=== PATIENT | female | born 1955 | race African-American/Black ===

== ENCOUNTER 2017-03-27 06:33 | Emergency (ER) | payer OTHER ==
[~2017-03-27] VITALS: Ht 160 cm; Wt 117.9 kg
[~2017-03-27 06:33] MED LIST: ALLO100T PO; ATEN100T PO; COLC0.6T2 PO; FLUT12AE7 HHN; LORA1TAB82 PO; MONT10TA22 PO; TRAM50TA2 PO; TRAZ150T75 PO; VENL150C2 PO
--- NOTE | 2017-03-27 06:49 | NUR ---
PT BIB FAMILY, PT RIGHT FLANK PAIN X 1 DAY. PT AOX3 RR EVEN AND UNLABORED. NO SOB NOTED. NAD NOTED. NO NVD AT THIS TIME. PT GOWNED AND PLACED ON MONITOR WAITING FOR MD HEATH.
--- NOTE | 2017-03-27 06:51 | NUR ---
DR. ARCHULETA AT BEDSIDE FOR EVAL.
--- NOTE | 2017-03-27 07:10 | NUR ---
REPORT GIVEN TO CHARLOTTE FAROOQ FOR ARCELIA.
[2017-03-27 07:30] LABS: BASOPHILS % (AUTO) 0.1 % (0.0-2.0); EOSINOPHILS % (AUTO) 0.1 % (0.0-6.0); HEMATOCRIT 40 % (33-45); HEMOGLOBIN 13.1 g/dL (11.5-14.8); LYMPHOCYTES # (AUTO) 1.4 /CMM (0.8-4.8); LYMPHOCYTES % (AUTO) 10.1 % (20.0-44.0); MEAN CORPUSCULAR HEMOGLOBIN 29 PG (26.0-33.0); MEAN CORPUSCULAR HGB CONC 33 g/dl (31.0-36.0); MEAN CORPUSCULAR VOLUME 90 fL (82-100); MONOCYTES # (AUTO) 0.5 /CMM (0.1-1.30); MONOCYTES % (AUTO) 3.8 % (2.0-12.0); NEUTROPHILS # (AUTO) 11.7 /CMM (1.8-8.9); NEUTROPHILS % (AUTO) 85.9 % (43.0-81.0); PLATELET COUNT (AUTO) 276 /CMM (150-450); RDW COEFFICIENT OF VARIATION 14.2 (11.5-15.0); RED BLOOD CELL COUNT(AUTO) 4.48 MIL/uL (4.0-5.2); WHITE BLOOD COUNT (AUTO) 13.7 K/uL (4.3-11.0)
--- NOTE | 2017-03-27 07:43 | NUR ---
URINE SAMPLE COLLECTED SENT TO LAB
[2017-03-27 07:46] LABS: BILIRUBIN,DIRECT 0.1 mg/dL (0.0-0.2); BILIRUBIN,TOTAL 0.4 mg/dL (0.2-1.0); CALCIUM, SERUM 9.1 mg/dL (8.5-10.1); POTASSIUM 3.6 mmol/L (3.5-5.1); TOTAL PROTEIN, SERUM 8.6 g/dL (6.4-8.2)
[2017-03-27 07:53] LABS: APPEARANCE,URINE SL CLOUDY (CLEAR); BILIRUBIN,URINE NEGATIVE (NEGATIVE); BLOOD, URINE 3+ Ery/uL (NEGATIVE); COLOR,URINE YELLOW (YELLOW); KETONES,URINE NEGATIVE (NEGATIVE); LEUKOCYTE ESTERASE ,URINE NEGATIVE (NEGATIVE); NITRITE, URINE NEGATIVE (NEGATIVE); PH,URINE 7.5 (5.0-8.0); PROTEIN,URINE TRACE mg/dl (NEGATIVE); UGLUCOSE NEGATIVE (NEGATIVE); UROBILINOGEN,URINE 0.2 EU/dL (0.2)
[2017-03-27 08:00] LABS: BACTERIA,URINE Rare /HPF (None Seen); RBC,URINE 81-100 /HPF (0-2); WBC,URINE 0-2 /HPF (0-3)
[2017-03-27 08:01] LABS: SQUAMOUS EPITHELIAL CELL,UR 0-2 /HPF (None Seen)
--- NOTE | 2017-03-27 09:10 | NUR ---
IV removed. Catheter intact and site benign. Pressure and 4x4 applied to site. No bleeding noted.
--- NOTE | 2017-03-27 09:10 | NUR ---
Patient discharged to home in stable condition. Written and verbal after care instructions given. Patient verbalizes understanding of instruction.
[2017-03-27 09:11] VITALS: BP 140/85
== END 2017-03-27 09:30 | disposition home or self-care (01) ==
LOC: ER 06:37
DX: N13.2 Hydronephrosis with renal and ureteral calculous obstruction (principal); D25.9 Leiomyoma of uterus, unspecified; D72.829 Elevated white blood cell count, unspecified; I10 Essential (primary) hypertension; J45.909 Unspecified asthma, uncomplicated; K57.30 Diverticulosis of large intestine without perforation or abscess without bleeding; Z86.718 Personal history of other venous thrombosis and embolism
CPT/HCPCS: 36415; 80048-TC; 80076-TC; 81000-TC; 83690-TC; 85025-TC; 87086-TC; A4606; J1170; J1885; J2270; J2405; J7040; Z7610

== ENCOUNTER 2017-04-23 20:29 | Inpatient (IN) | payer OTHER ==
[~2017-04-23] VITALS: Ht 160 cm; Wt 112.3 kg
[~2017-04-23 20:29] MED LIST changes: -FLUT12AE7 HHN; +FLUT12AE7 IH
--- NOTE | 2017-04-23 20:43 | NUR ---
PT A/OX4 BREATHING EFFORTLESSLY ON ROOM AIR, PT STATES SHE HAD 2 GLF'S LAST NIGHT AND DENIES KO ON EITHER ONE, PT C/O HEAD RIGHT SIDE FO FACE AND RIGHT ARM PAIN, PT IN GOWN, ON MONITOR, NAD NOTED, PT FRIEND AT BEDSIDE, MADE AWARE WILL CONTINUE TO MONITOR.
--- NOTE | 2017-04-23 21:14 | NUR ---
PT TO CT
[2017-04-23 21:39] LABS: BASOPHILS % (AUTO) 0.4 % (0.0-2.0); EOSINOPHILS # (AUTO) 0.3 /CMM (0.0-0.7); EOSINOPHILS % (AUTO) 4.1 % (0.0-6.0); HEMATOCRIT 39 % (33-45); HEMOGLOBIN 12.5 g/dL (11.5-14.8); LYMPHOCYTES # (AUTO) 3.1 /CMM (0.8-4.8); LYMPHOCYTES % (AUTO) 39.1 % (20.0-44.0); MEAN CORPUSCULAR HEMOGLOBIN 29 PG (26.0-33.0); MEAN CORPUSCULAR HGB CONC 32 g/dl (31.0-36.0); MEAN CORPUSCULAR VOLUME 89 fL (82-100); MONOCYTES # (AUTO) 0.7 /CMM (0.1-1.30); MONOCYTES % (AUTO) 8.7 % (2.0-12.0); NEUTROPHILS # (AUTO) 3.8 /CMM (1.8-8.9); NEUTROPHILS % (AUTO) 47.7 % (43.0-81.0); PLATELET COUNT (AUTO) 285 /CMM (150-450); RDW COEFFICIENT OF VARIATION 13.2 (11.5-15.0); RED BLOOD CELL COUNT(AUTO) 4.37 MIL/uL (4.0-5.2); WHITE BLOOD COUNT (AUTO) 7.9 K/uL (4.3-11.0)
[2017-04-23] MEDS ORDERED: METOCLOPRAMIDE HCL 10 MG/2 ML VIAL ONE (21:42)
[2017-04-23] MEDS ORDERED: diphenhydrAMINE HCL 50 MG/ML VIAL ONE (21:42)
--- NOTE | 2017-04-23 21:47 | NUR ---
PT HAD 1 BOUT OF VOMITING AND PT STATES SHE IS FEELING BETTER AFTER VOMITING, MD MADE AWARE WILL CONTINUE TO MONITOR.
[2017-04-23 21:49] LABS: CALCIUM, SERUM 9.2 mg/dL (8.5-10.1); CARBON DIOXIDE 29 mmol/L (21-32); CHLORIDE 106 mmol/L (98-107); CREATININE 1.6 mg/dL (0.6-1.3); GLUCOSE 93 mg/dL (74-106); SODIUM SERUM 139 mmol/L (136-145); UREA NITROGEN, BLOOD 26 mg/dL (7-18)
[2017-04-23 21:58] LABS: TROPONIN I < 0.017 ng/mL (0.00-0.056)
[2017-04-23] MEDS ORDERED: diphenhydrAMINE HCL 50 MG/ML VIAL IV ONE (22:00)
[2017-04-23] MEDS ORDERED: IV NS 0.9% 500 ML BAG IV ONE (22:00)
[2017-04-23] MEDS ORDERED: METOCLOPRAMIDE HCL 10 MG/2 ML VIAL IV ONE (22:00)
--- NOTE | 2017-04-23 23:10 | NUR ---
RN NOTES PATIENT ADMITTED FROM ER. GOT REPORT FROM CHARLOTTE YANG. PATIENT ALERT AND ORIENTED X4. ON RA, RESPIRATIONS EVEN AND UNLABORED. NO RESPIRATORY DISTRESS NOTED. NO SOB. PATIENT COMPLAINS PAIN 5/10 HEAD RIGHT SIDE TO FACE AND RIGHT ARM PAIN. MD AWARE. PATIENT'S FRIEND AT BEDSIDE. IV ACCESS ON RIGHT AC PATENT AND INTACT. NO REDNESS OR INFILTRATION NOTED. BSX4. WILL WAIT FOR MD ORDER. BED IN LOW POSITION. SIDE RAILSX2. CALL LIGHT WITHIN EASY REACH. CONTINUE TO MONITOR.
[2017-04-23 23:30] VITALS: BP 140/76
[2017-04-24] MEDS ORDERED: IV NS 0.9% 1,000 ML BAG IV ONE
[2017-04-24] MEDS ORDERED: MAGNESIUM HYDROXIDE 30 ML UDC PO PRN
[2017-04-24] MEDS ORDERED: ONDANSETRON HCL/PF 4 MG/2 ML VIAL IVP PRN
[2017-04-24] MEDS ORDERED: MAG HYDROX/AL HYDROX/SIMETH 30 ML UDC PO PRN
[2017-04-24] MEDS ORDERED: Z GUARD REMEDY 2 OZ OINT TP PRN
[2017-04-24] MEDS ORDERED: ZOLPIDEM TARTRATE 5 MG TABLET PO PRN
[2017-04-24] MEDS ORDERED: VENLAFAXINE XR 150 MG CAP.SR.24H PO SCH (00:30)
[2017-04-24 00:32] VITALS: BP 140/76
[2017-04-24] MEDS ORDERED: ACETAMINOPHEN 325 MG TABLET ONE (00:41)
[2017-04-24] MEDS ORDERED: VENLAFAXINE XR 150 MG CAP.SR.24H ONE (00:43)
[2017-04-24] MEDS: ACETAMINOPHEN 325 MG TABLET PO PRN (00:50)
--- NOTE | 2017-04-24 00:50 | NUR ---
RN NOTES TYLENOL GIVEN 650 MG PER MD ORDER FOR PAIN RIGHT ARM AND FACE. PER DR BLAIR NO NARCOTICS, NO BENZODIAZIPINES . PATIENT ON FREQUENT NEURO CHECK. CONTINUE TO MONITOR.
[2017-04-24] MEDS ORDERED: ONDANSETRON HCL/PF 4 MG/2 ML VIAL ONE (02:01)
--- NOTE | 2017-04-24 02:09 | NUR ---
RN NOTES ZOFRAN 4MG/2 ML GIVEN TO THE PATIENT TO CONTROL NAUSEA AND VOMITING. CONTINUE TO MONITOR.
--- NOTE | 2017-04-24 06:50 | NUR ---
RN CLOSING NOTES PATIENT IS IN BED ALERT AND ORIENTED X4. ON RA, RESPIRATIONS EVEN AND UNLABORED. NO RESPIRATORY DISTRESS NOTED. NO SOB. VS S TABLE. PATIENT'S FRIEND AT BEDSIDE. IV ACCESS ON RIGHT AC PATENT AND INTACT. NO REDNESS OR INFILTRATION NOTED. INFUSING NS AT 100 ML/HR. PATIENT NPO EXCEPT MEDICATIONS DUE TO POSSIBLE PROCEDURE. BED IN LOW POSITION. SIDE RAILSX2. CALL LIGHT WITHIN EASY REACH. WILL ENDORSE TO RN DAY SHIFT FOR CONTINUITY OF CARE.
--- NOTE | 2017-04-24 07:18 | NUR ---
TAX REVENUE OFFICER OPENING NOTE RECEIVED SBAR REPORT AT THE BEDSIDE. PATIENT IS IN BED A/O X3, ANXIOUS, FORGETFUL OF SPECIFIC DATES. PATIENT IS AWAKE IN BED, FRIEND AT THE BEDSIDE. BED IS LOCKED AT THE LOWEST POSITION, SIDE RAILS UP X2, BED ALARM ON. PATIENT IS EDUCATED TO USE THE CALL LIGHT TO CALL FOR ASSISTANCE. PATIENT VERBALIZED UNDERSTANDING OF THE TEACHINGS. ALL NEEDS ARE ATTENDED TO. WILL CONTINUE TO ASSESS/MONITOR THROUGHOUT THE SHIFT.
[2017-04-24 07:48] LABS: BASOPHILS % (AUTO) 0.1 % (0.0-2.0); EOSINOPHILS # (AUTO) 0.4 /CMM (0.0-0.7); EOSINOPHILS % (AUTO) 5.9 % (0.0-6.0); HEMATOCRIT 33 % (33-45); HEMOGLOBIN 10.8 g/dL (11.5-14.8); LYMPHOCYTES # (AUTO) 3.3 /CMM (0.8-4.8); MEAN CORPUSCULAR HEMOGLOBIN 30 PG (26.0-33.0); MEAN CORPUSCULAR HGB CONC 33 g/dl (31.0-36.0); MEAN CORPUSCULAR VOLUME 90 fL (82-100); MONOCYTES # (AUTO) 0.9 /CMM (0.1-1.30); MONOCYTES % (AUTO) 12.3 % (2.0-12.0); NEUTROPHILS # (AUTO) 2.4 /CMM (1.8-8.9); NEUTROPHILS % (AUTO) 34.7 % (43.0-81.0); PLATELET COUNT (AUTO) 223 /CMM (150-450); RDW COEFFICIENT OF VARIATION 14.4 (11.5-15.0); RED BLOOD CELL COUNT(AUTO) 3.67 MIL/uL (4.0-5.2); WHITE BLOOD COUNT (AUTO) 7.1 K/uL (4.3-11.0)
[2017-04-24 08:00] VITALS: BP 123/70
[2017-04-24 08:12] LABS: CALCIUM, SERUM 8.4 mg/dL (8.5-10.1); CREATININE 1.1 mg/dL (0.6-1.3); PHOSPHORUS 5.4 mg/dL (2.5-4.9); POTASSIUM 4.2 mmol/L (3.5-5.1)
--- NOTE | 2017-04-24 09:18 | NUR ---
CREDIT CLERK NOTE DR SHEPARD AT THE BEDSIDE.
[2017-04-24] MEDS: MONTELUKAST SODIUM (10MG) 10 MG TABLET PO SCH (09:54)
[2017-04-24] MEDS: VENLAFAXINE XR 150 MG CAP.SR.24H PO SCH (09:54)
[2017-04-24] MEDS: TRAMADOL HCL 50 MG TABLET PO SCH (09:55)
[2017-04-24] MEDS: IV NS 0.9% 1,000 ML IV PRN (09:56)
[2017-04-24] MEDS: FLUTICASONE 220MCG 1 INHALER IH SCH ×2 (09:56→21:06)
[2017-04-24 10:04] LABS: THYROID STIMULATING HORMONE 0.916 uIU/mL (0.358-3.74)
[2017-04-24] MEDS ORDERED: HYDR-3026 PO (12:08)
[2017-04-24] MEDS ORDERED: GABA-534 PO (12:08)
[2017-04-24] MEDS ORDERED: ATOR10TA PO (12:08)
[2017-04-24] MEDS ORDERED: SALM50DI IH (12:08)
[2017-04-24] MEDS ORDERED: OMEP20CA10 PO (12:08)
[2017-04-24] MEDS ORDERED: TIOT18CA3 IH (12:08)
[2017-04-24] MEDS ORDERED: NAPR500T3 PO (12:08)
[2017-04-24] MEDS ORDERED: LORA10TA7 PO (12:08)
[2017-04-24] MEDS ORDERED: FLUT200B IH (12:08)
[2017-04-24] MEDS ORDERED: [UNRECOGNIZED DRUG - CODE] BC (12:08)
[2017-04-24] MEDS ORDERED: POLY15DR40 EACHEYE (12:08)
[2017-04-24] MEDS ORDERED: HYDR59LO5 TP (12:08)
[2017-04-24] MEDS ORDERED: FLUT16SP16 NS (12:08)
[2017-04-24] MEDS ORDERED: ALBU2.5V13 IH (12:08)
[2017-04-24] MEDS ORDERED: HYDR28.32 TP (12:08)
[2017-04-24] MEDS ORDERED: APIX5TAB PO (12:08)
[2017-04-24] MEDS ORDERED: DIPH25CA6 PO (12:08)
[2017-04-24] MEDS: APIXABAN 5 MG TABLET PO SCH ×2 (13:50→17:11)
[2017-04-24 16:00] VITALS: BP 101/57
--- NOTE | 2017-04-24 19:37 | NUR ---
MS RN CLOSING NOTE GAVE SBAR REPORT AT THE BEDSIDE. PATIENT IS IN BED A/O X3, ANXIOUS, FORGETFUL OF SPECIFIC DATES. PATIENT IS AWAKE IN BED, FRIEND AT THE BEDSIDE. BED IS LOCKED AT THE LOWEST POSITION, SIDE RAILS UP X2, BED ALARM ON. PATIENT IS EDUCATED TO USE THE CALL LIGHT TO CALL FOR ASSISTANCE. PATIENT VERBALIZED UNDERSTANDING OF THE TEACHINGS. ALL NEEDS ARE ATTENDED TO. WENDORSED TO DIVISION CHAIR FOR ARCELIA.
--- NOTE | 2017-04-24 19:52 | NUR ---
MS/RN RECEIVE PATIENT AWAKE, ALERT, ORIENTED, COMFORTABLE, NO C/O PAIN, NO DISTRESS NOTED, ASSISTED TO THE TOILET AND BACK TO BED, TOLERATED WELL. PLACED CALL LIGHT WITHIN IN REACH. FALL PRECAUTION PER PROTOCOL IN PLACE. WILL MONITOR.
[2017-04-24 20:00] VITALS: BP_SYST 115; BP_SYST 117; BP_SYST 120; BP_DIAS 69; BP_DIAS 70; BP_DIAS 74
[2017-04-24 20:58] VITALS: BP 115/69
--- NOTE | 2017-04-25 01:28 | NUR ---
MS/RN PATIENT IS SLEEPING AT THIS TIME, AROUSABLE APPEAR COMFORTABLE, NO SIGNS OF DISTRESS NOTED, CALL LIGHT IN REACH. WILL CONTINUE TO MONITOR.
[2017-04-25] MEDS: IV NS 0.9% 1,000 ML IV PRN ×3 (03:32→22:54)
--- NOTE | 2017-04-25 06:22 | NUR ---
MS/RN PATIENT IS AWAKE AT THIS TIME, COMFORTABLE, NO CHANGE IN CONDITION. ALL NEEDS ATTENDED AT THIS TIME, WILL CONTINUE TO MONITOR.
[2017-04-25 06:24] LABS: BASOPHILS % (AUTO) 0.4 % (0.0-2.0); EOSINOPHILS # (AUTO) 0.4 /CMM (0.0-0.7); EOSINOPHILS % (AUTO) 6.5 % (0.0-6.0); HEMATOCRIT 33 % (33-45); HEMOGLOBIN 10.7 g/dL (11.5-14.8); LYMPHOCYTES # (AUTO) 2.9 /CMM (0.8-4.8); LYMPHOCYTES % (AUTO) 48.7 % (20.0-44.0); MEAN CORPUSCULAR HEMOGLOBIN 29 PG (26.0-33.0); MEAN CORPUSCULAR HGB CONC 33 g/dl (31.0-36.0); MEAN CORPUSCULAR VOLUME 90 fL (82-100); MONOCYTES # (AUTO) 0.6 /CMM (0.1-1.30); MONOCYTES % (AUTO) 9.9 % (2.0-12.0); NEUTROPHILS # (AUTO) 2.1 /CMM (1.8-8.9); NEUTROPHILS % (AUTO) 34.5 % (43.0-81.0); PLATELET COUNT (AUTO) 225 /CMM (150-450); RED BLOOD CELL COUNT(AUTO) 3.66 MIL/uL (4.0-5.2); WHITE BLOOD COUNT (AUTO) 5.9 K/uL (4.3-11.0)
[2017-04-25 06:44] LABS: ALANINE AMINOTRANSFERASE 19 U/L (12-78); ALBUMIN 2.8 g/dL (3.4-5.0); ALKALINE PHOSPHATASE 61 U/L (46-116); ASPARTATE AMINOTRANSFERASE 19 U/L (15-37); BILIRUBIN,TOTAL 0.2 mg/dL (0.2-1.0); CALCIUM, SERUM 8.4 mg/dL (8.5-10.1); CARBON DIOXIDE 26 mmol/L (21-32); CHLORIDE 109 mmol/L (98-107); CREATININE 0.7 mg/dL (0.6-1.3); GLUCOSE 88 mg/dL (74-106); POTASSIUM 4.1 mmol/L (3.5-5.1); SODIUM SERUM 141 mmol/L (136-145); TOTAL PROTEIN, SERUM 6.5 g/dL (6.4-8.2); UREA NITROGEN, BLOOD 19 mg/dL (7-18)
[2017-04-25 06:52] LABS: TROPONIN I < 0.017 ng/mL (0.00-0.056)
--- NOTE | 2017-04-25 07:30 | NUR ---
MS RN OPENING NOTE PATIENT IS ALERT AND ORIENTED x4. NO PAIN AT THIS TIME. NO SOB OR DISTRESS NOTED. CALL LIGHT WITHIN REACH. SAFETY MEASURES IMPLEMENTED. ABLE TO COMMUNICATE NEEDS. IV ON RIGHT AC INTACT AND PATENT NO REDNESS OR SWELLING NOTED. IV FLUIDS RUNNING AT 125 ML/HR, FREQUENT NEURO CHECKS Q4H. AWAITING PT EVAL, AND NEURO CONSULT. POSSIBLE DISCHARGE HOME TODAY. WILL CONTINUE TO MONITOR
[2017-04-25 08:00] VITALS: BP_SYST 141; BP_SYST 150; BP_SYST 154; BP_DIAS 76; BP_DIAS 79; BP_DIAS 92
[2017-04-25] MEDS: APIXABAN 5 MG TABLET PO SCH ×2 (08:46→17:08)
[2017-04-25] MEDS: VENLAFAXINE XR 150 MG CAP.SR.24H PO SCH (08:46)
[2017-04-25] MEDS: MONTELUKAST SODIUM (10MG) 10 MG TABLET PO SCH (08:46)
[2017-04-25] MEDS: TRAMADOL HCL 50 MG TABLET PO SCH (08:46)
[2017-04-25] MEDS: FLUTICASONE 220MCG 1 INHALER IH SCH ×2 (08:46→21:23)
[2017-04-25] MEDS: ACETAMINOPHEN 325 MG TABLET PO PRN (13:25)
[2017-04-25 16:00] VITALS: BP 157/94
--- NOTE | 2017-04-25 18:23 | NUR ---
MS RN CLOSING NOTE PATIENT IS ALERT AND ORIENTED x4. NO PAIN AT THIS TIME. NO SOB OR DISTRESS NOTED. CALL LIGHT WITHIN REACH AT ALL TIMES. SAFETY MEASURES IMPLEMENTED. ALL DUE MEDICATIONS GIVEN ORDERED. ABLE TO COMMUNICATE NEEDS. IV ON RIGHT AC INTACT AND PATENT NO REDNESS OR SWELLING NOTED. PATIENT TO BE DISCHARGED ONCE CLEARED BY NEURO, PAGED DR. LEAVITT THREE TIMES. CHARGE NURSE INFORMED, AWAITING CALL BACK. WILL ENDORSE TO FAN MAIL EDITOR NURSE FOR ARCELIA
[2017-04-25 20:00] VITALS: BP 140/72
--- NOTE | 2017-04-25 20:00 | NUR ---
RN NOTES PATIENT IN BED, ALERT AND ORIENTED X4, CALM, NO SOB, NO RESPIRATORY DISTRESS, TOLERATING ROOM AIR, SPO2 95%, NO COMPLAIN OF PAIN AT THIS TIME, RT AC PERIPHERAL LINE IS PATENT AND INFUSING WELL, FOR DISCHARGE PENDING CLEARANCE FROM NEUROLOGIST. NEEDS ATTENDED, FAMILY MEMBERS AT THE BEDSIDE, CALL LIGHT WITHIN REACH.
--- NOTE | 2017-04-25 23:00 | NUR ---
RN NOTES PATIENT REFUSED IV FLUIDS INFUSION, PER PATIENT "MAKES ME GO TO THE BATHROOM ALL THE TIME." PATIENT IS DRINKING ADEQUATE FLUIDS.
--- NOTE | 2017-04-26 06:49 | NUR ---
RN NOTES PATIENT IS ALERT AND AWAKE, NO SOB, NO DISTRESS, NO COMPLAIN OF PAIN, NO ADVERSE CHANGE OF CONDITION DURING SHIFT, ASSISTED TO BATHROOM, FOR DISCHARGE TODAY ONCE CLEARED BY DR. LEAVITT.
--- NOTE | 2017-04-26 07:30 | NUR ---
MS RN OPENING NOTE PATIENT IS ALERT AND ORIENTED x4. NO PAIN AT THIS TIME. NO SOB OR DISTRESS NOTED. CALL LIGHT WITHIN REACH. SAFETY MEASURES IMPLEMENTED. ABLE TO COMMUNICATE NEEDS. IV ON RIGHT AC INTACT AND PATENT NO REDNESS OR SWELLING NOTED. PATIENT REFUSING IV FLUIDS AT THIS TIME. DISCHARGE TODAY ONCE CLEARED FROM NEURO. WILL CONTINUE TO MONITOR
[2017-04-26] MEDS: APIXABAN 5 MG TABLET PO SCH (08:52)
[2017-04-26] MEDS: TRAMADOL HCL 50 MG TABLET PO SCH (08:53)
[2017-04-26] MEDS: FLUTICASONE 220MCG 1 INHALER IH SCH (08:53)
[2017-04-26] MEDS: MONTELUKAST SODIUM (10MG) 10 MG TABLET PO SCH (08:53)
[2017-04-26] MEDS: VENLAFAXINE XR 150 MG CAP.SR.24H PO SCH (08:53)
--- NOTE | 2017-04-26 10:33 | NUR ---
MS SENIOR DIGITAL DESIGNER NOTE PATIENT IS ALERT AND ORIENTED x4. NO PAIN AT THIS TIME. NO SOB OR DISTRESS NOTED. CALL LIGHT WITHIN REACH AT ALL TIMES. SAFETY MEASURES IMPLEMENTED. ABLE TO COMMUNICATE NEEDS. IV REMOVED, SKIN INTACT. ALL BELONGINGS WITH PATIENT AND FAMILY MEMBER. ALL DISCHARGE INSTRUCTIONS GIVEN TO PATIENT, PATIENT ABLE TO RETURN VERBALIZATION OF INSTRUCTIONS. PATIENT REFUSED PICTURE OF RIGHT ARM BRUISE, SHE STATED " I JUST WANT TO GO HOME RIGHT NOW PLEASE". LEFT PRIVATE CAR WITH FAMILY MEMBER. Addendum: 04/26/17 at 1036 by ISELA RIVERA RN HOME MEDICATIONS PICKED UP FROM PHARMACY AND WITH PATIENT AT DISCHARGE
[2017-04-26 13:41] VITALS: BP 156/84
== END 2017-04-26 10:20 | disposition home or self-care (01) | DRG 54 ==
LOC: ER 20:36 → MED 23:25 → TELE 04-24 01:50 → MED 04-24 08:41
PROVIDERS: ADMIT Family Medicine; ATTEND Family Medicine
DX: F07.81 Postconcussional syndrome (principal); I10 Essential (primary) hypertension; G47.30 Sleep apnea, unspecified; J45.909 Unspecified asthma, uncomplicated; Z87.442 Personal history of urinary calculi; Z86.718 Personal history of other venous thrombosis and embolism; Z79.899 Other long term (current) drug therapy; Z79.01 Long term (current) use of anticoagulants; Z79.51 Long term (current) use of inhaled steroids; Y92.002 Bathroom of unspecified non-institutional (private) residence as the place of occurrence of the external cause; W01.198A Fall on same level from slipping, tripping and stumbling with subsequent striking against other object, initial encounter; W18.11XA Fall from or off toilet without subsequent striking against object, initial encounter; M19.90 Unspecified osteoarthritis, unspecified site; N13.2 Hydronephrosis with renal and ureteral calculous obstruction; Z96.651 Presence of right artificial knee joint; F32.9 Major depressive disorder, single episode, unspecified; Y93.01 Activity, walking, marching and hiking; M85.80 Other specified disorders of bone density and structure, unspecified site
CPT/HCPCS: 36415; 70450-TC; 71010-TC; 73060-TC; 73562; 80048-TC; 80053-TC; 80061-TC; 82728-TC; 83540-TC; 83735-TC; 84100-TC; 84439-TC; 84443-TC; 84484-TC; 85025-TC; 93307-TC; A4606; J1200; J2405; J2765; J7030; J7040; Z7610

== ENCOUNTER 2017-10-20 20:52 | Emergency (ER) | payer OTHER ==
[~2017-10-20] VITALS: Ht 160 cm; Wt 104.3 kg
[~2017-10-20 20:52] MED LIST changes: +ALBU2.5V13 IH; +APIX5TAB PO; -ATEN100T PO; +ATOR10TA PO; -COLC0.6T2 PO; +DIPH25CA6 PO; +FLUT16SP16 NS; +FLUT200B IH; +GABA-534 PO; +HYDR28.32 TP; +HYDR59LO5 TP; +LORA10TA7 PO; -LORA1TAB82 PO; +OMEP20CA10 PO; +POLY15DR40 EACHEYE; +TIOT18CA3 IH; -TRAZ150T75 PO; +[UNRECOGNIZED DRUG - CODE] BC
[2017-10-20 21:13] VITALS: BP 167/88
--- NOTE | 2017-10-20 23:36 | NUR ---
RECEIVED REPORT FROM CHARLOTTE DELGADO FOR ARCELIA
== END 2017-10-20 21:58 | disposition home or self-care (01) ==
LOC: ER 20:57
DX: T63.301A Toxic effect of unspecified spider venom, accidental (unintentional), initial encounter (principal); L03.115 Cellulitis of right lower limb; I10 Essential (primary) hypertension; J45.909 Unspecified asthma, uncomplicated; F32.9 Major depressive disorder, single episode, unspecified; Z87.442 Personal history of urinary calculi; Z98.890 Other specified postprocedural states; Z60.2 Problems related to living alone; Y92.89 Other specified places as the place of occurrence of the external cause
CPT/HCPCS: A4606; Z7610

== ENCOUNTER 2017-12-25 08:46 | Emergency (ER) | payer OTHER ==
[~2017-12-25] VITALS: Ht 160 cm; Wt 111.1 kg
[2017-12-25 08:46] VITALS: BP 124/82
== END 2017-12-25 09:14 | disposition home or self-care (01) ==
LOC: ER 08:48
DX: L50.8 Other urticaria (principal); I10 Essential (primary) hypertension; J45.909 Unspecified asthma, uncomplicated; F32.9 Major depressive disorder, single episode, unspecified; Z87.442 Personal history of urinary calculi; Z98.890 Other specified postprocedural states; Z60.2 Problems related to living alone
CPT/HCPCS: 99283; A4606; Z7610

== ENCOUNTER 2018-04-16 09:58 | Emergency (ER) | payer OTHER ==
[~2018-04-16] VITALS: Ht 160 cm; Wt 118.4 kg
[2018-04-16] MEDS ORDERED: IBUPROFEN 400 MG TABLET PO ONE (10:30)
[2018-04-16] MEDS ORDERED: IBUPROFEN 400 MG TABLET ONE (10:35)
--- NOTE | 2018-04-16 10:54 | NUR ---
CRIPPLE WORKER AT BEDSIDE
--- NOTE | 2018-04-16 11:30 | NUR ---
PATIENT LEFT THE ER WITHOUT SIGNING ANY INFORMATION.
[2018-04-16 11:57] VITALS: BP 188/100
== END 2018-04-16 11:59 | disposition left against medical advice (07) ==
LOC: ER 10:02
DX: S40.011A Contusion of right shoulder, initial encounter (principal); S80.01XA Contusion of right knee, initial encounter; S60.212A Contusion of left wrist, initial encounter; S60.211A Contusion of right wrist, initial encounter; I10 Essential (primary) hypertension; J45.909 Unspecified asthma, uncomplicated; F32.9 Major depressive disorder, single episode, unspecified; G47.30 Sleep apnea, unspecified; Z87.442 Personal history of urinary calculi; Z87.19 Personal history of other diseases of the digestive system; Z98.890 Other specified postprocedural states; Z60.2 Problems related to living alone; Z79.899 Other long term (current) drug therapy; W01.0XXA Fall on same level from slipping, tripping and stumbling without subsequent striking against object, initial encounter; Y93.89 Activity, other specified; Y92.89 Other specified places as the place of occurrence of the external cause; Y99.8 Other external cause status
CPT/HCPCS: 73030-TC; 73110; 73564-TC; A4606; Z7610

== ENCOUNTER 2018-09-02 13:48 | Emergency (ER) | payer OTHER ==
[~2018-09-02] VITALS: Ht 160 cm; Wt 115.7 kg
--- NOTE | 2018-09-02 13:48 | NUR ---
BIB SELF W C/O WORSENING BILATERAL CALF PAIN X 2 WEEKS, HX OF DVT , TO ER BED 1, HOOKED TO MONITOR, CHANGED TO [place], AWAITING MD HEATH
--- NOTE | 2018-09-02 14:28 | NUR ---
VALENCIA VALDEZ AT BEDSIDE.
--- NOTE | 2018-09-02 14:42 | NUR ---
US TECH AT BEDSIDE
[2018-09-02] MEDS ORDERED: ACETAMINOPHEN 325 MG TABLET PO ONE (15:00)
[2018-09-02 15:17] LABS: EOSINOPHILS % (AUTO) 3.3 % (0.0-6.0); HEMATOCRIT 40 % (33-45); HEMOGLOBIN 13.3 g/dL (11.5-14.8); LYMPHOCYTES # (AUTO) 2.6 /CMM (0.8-4.8); LYMPHOCYTES % (AUTO) 52.4 % (20.0-44.0); MEAN CORPUSCULAR HGB CONC 33 g/dl (31.0-36.0); MEAN CORPUSCULAR VOLUME 91 fL (82-100); MONOCYTES # (AUTO) 0.5 /CMM (0.1-1.30); MONOCYTES % (AUTO) 9.3 % (2.0-12.0); NEUTROPHILS # (AUTO) 1.7 /CMM (1.8-8.9); PLATELET COUNT (AUTO) 293 /CMM (150-450); RED BLOOD CELL COUNT(AUTO) 4.42 MIL/uL (4.0-5.2); WHITE BLOOD COUNT (AUTO) 4.9 K/uL (4.3-11.0)
[2018-09-02] MEDS ORDERED: ACETAMINOPHEN ES 500 MG TABLET ONE (15:23)
[2018-09-02 15:28] LABS: CALCIUM, SERUM 8.8 mg/dL (8.5-10.1); CREATININE 0.8 mg/dL (0.6-1.3); POTASSIUM 3.6 mmol/L (3.5-5.1)
[2018-09-02 15:33] LABS: ALBUMIN 3.5 g/dL (3.4-5.0); BILIRUBIN,DIRECT 0.1 mg/dL (0.0-0.2); BILIRUBIN,TOTAL 0.3 mg/dL (0.2-1.0); TOTAL PROTEIN, SERUM 7.5 g/dL (6.4-8.2)
--- NOTE | 2018-09-02 15:52 | NUR ---
Patient discharged to home in stable condition. Written and verbal after care instructions given. Patient verbalizes understanding of instruction.
[2018-09-02 16:35] VITALS: BP 152/94
[2018-09-02 17:42] LABS: BAND % (MANUAL) 11 % (0.0-5.0); EOSINOPHILS % (MANUAL) 2 % (0-4); LYMPHOCYTES % (MANUAL) 49 % (16-48); MONOCYTES % (MANUAL) 11 % (0-11.0); NEUTROPHILS % (MANUAL) 27 (42-76)
== END 2018-09-02 16:00 | disposition home or self-care (01) ==
LOC: ER 13:52
DX: M25.561 Pain in right knee (principal); M25.562 Pain in left knee; I10 Essential (primary) hypertension; J45.909 Unspecified asthma, uncomplicated; F32.9 Major depressive disorder, single episode, unspecified; Z87.442 Personal history of urinary calculi; Z86.718 Personal history of other venous thrombosis and embolism; Z98.890 Other specified postprocedural states; Z60.2 Problems related to living alone; Z79.899 Other long term (current) drug therapy
CPT/HCPCS: 36415; 80048; 80076; 85025; 85730; 93970; 99284; A4606

== ENCOUNTER 2018-09-26 17:31 | Emergency (ER) | payer OTHER ==
[~2018-09-26] VITALS: Ht 160 cm; Wt 113.4 kg
--- NOTE | 2018-09-26 18:05 | NUR ---
PT BIB FAMILY TO ER BED 12 C/O LT HIP AND LT KNEE PAIN S/P SLIP AND FALL WHILE PLAYING BOWLING LAST NIGHT. PT DENIES HEAD TRAUMA. GOWNED AND PLACED ON MONITOR. VSS AWAITING MD HEATH.
--- NOTE | 2018-09-26 18:10 | NUR ---
BRIDGET [place] AT BEDSIDE FOR EVAL.
[2018-09-26] MEDS ORDERED: ACETAMINOPHEN 325 MG TABLET PO ONE (18:30)
[2018-09-26] MEDS ORDERED: ACETAMINOPHEN ES 500 MG TABLET ONE (18:35)
[2018-09-26] MEDS ORDERED: TRAMADOL HCL 50 MG TABLET ONE (19:22)
[2018-09-26] MEDS ORDERED: TRAMADOL HCL 50 MG TABLET PO ONE (19:30)
--- NOTE | 2018-09-26 19:44 | NUR ---
Patient discharged to home in stable condition. Written and verbal after care instructions given. Patient verbalizes understanding of instruction.
[2018-09-26 19:46] VITALS: BP 133/60
== END 2018-09-26 19:47 | disposition home or self-care (01) ==
LOC: ER 17:35
DX: M25.562 Pain in left knee (principal); M25.512 Pain in left shoulder; M25.552 Pain in left hip; I10 Essential (primary) hypertension; J45.909 Unspecified asthma, uncomplicated; F32.9 Major depressive disorder, single episode, unspecified; G47.30 Sleep apnea, unspecified; Z98.890 Other specified postprocedural states; Z60.2 Problems related to living alone; Z79.899 Other long term (current) drug therapy; W01.0XXA Fall on same level from slipping, tripping and stumbling without subsequent striking against object, initial encounter; Y93.89 Activity, other specified; Y92.89 Other specified places as the place of occurrence of the external cause; Y99.8 Other external cause status
CPT/HCPCS: 73030-TC; 73502; 73560-TC

== ENCOUNTER 2018-12-18 21:49 | Emergency (ER) | payer OTHER ==
[~2018-12-18] VITALS: Ht 160 cm; Wt 113.9 kg
[~2018-12-18 21:49] MED LIST changes: -OMEP20CA10 PO; +OMEP20CA11 PO
[2018-12-18 21:55] VITALS: BP 170/112
== END 2018-12-18 22:57 | disposition home or self-care (01) ==
LOC: ER 21:54
DX: S70.361A Insect bite (nonvenomous), right thigh, initial encounter (principal); G89.29 Other chronic pain; I10 Essential (primary) hypertension; J45.909 Unspecified asthma, uncomplicated; G47.30 Sleep apnea, unspecified; F32.9 Major depressive disorder, single episode, unspecified; Z98.890 Other specified postprocedural states; Z87.442 Personal history of urinary calculi; Z60.2 Problems related to living alone; W57.XXXA Bitten or stung by nonvenomous insect and other nonvenomous arthropods, initial encounter; Y93.01 Activity, walking, marching and hiking; Y92.89 Other specified places as the place of occurrence of the external cause; Y99.8 Other external cause status

== ENCOUNTER 2020-02-27 14:57 | Emergency (ER) | payer OTHER ==
[~2020-02-27] VITALS: Ht 160 cm; Wt 116.1 kg
[~2020-02-27 14:57] MED LIST changes: +DIPH25CA51 PO; -DIPH25CA6 PO; -OMEP20CA11 PO; +OMEP20CA15 PO
--- NOTE | 2020-02-27 15:35 | NUR ---
Patient came in to the er c/o sudden onset of left knee pain while on her way to her car SPARE HAND CARDING. On room air, breathing evenly and unlabored. connected to the monitor and pulse ox. kept comfortable, will continue to monitor accordingly.
[2020-02-27] MEDS ORDERED: KETOROLAC TROMETHAMINE INJ 30 MG/ML VIAL ONE (17:27)
[2020-02-27] MEDS ORDERED: KETOROLAC TROMETHAMINE INJ 60 MG/2 ML VIAL IM ONE (17:30)
[2020-02-27 17:54] VITALS: BP 141/80
--- NOTE | 2020-02-27 17:55 | NUR ---
Patient discharged to home in stable condition. Written and verbal after care instructions given. Patient verbalizes understanding of instruction.
== END 2020-02-27 17:55 | disposition home or self-care (01) ==
LOC: ER 15:03
DX: M25.531 Pain in right wrist (principal); M54.5 Low back pain; M25.562 Pain in left knee; L30.9 Dermatitis, unspecified; J45.909 Unspecified asthma, uncomplicated; G47.30 Sleep apnea, unspecified; E78.5 Hyperlipidemia, unspecified; I10 Essential (primary) hypertension; Z86.718 Personal history of other venous thrombosis and embolism; Z87.442 Personal history of urinary calculi; Z98.890 Other specified postprocedural states; Z60.2 Problems related to living alone; Z79.899 Other long term (current) drug therapy
CPT/HCPCS: 72100; 73110; 73564; 96372; 99284; J1885

== ENCOUNTER 2020-11-22 16:35 | Emergency (ER) | payer OTHER ==
[~2020-11-22] VITALS: Ht 160 cm; Wt 110.7 kg
[2020-11-22 16:50] VITALS: BP 164/95
[2020-11-22] MEDS ORDERED: KETOROLAC TROMETHAMINE INJ 60 MG/2 ML VIAL IM ONE (17:00)
[2020-11-22] MEDS ORDERED: METHOCARBAMOL (750MG) 750 MG TABLET PO SCH (17:00)
[2020-11-22] MEDS ORDERED: KETOROLAC TROMETHAMINE 15 MG/ML VIAL ONE (17:23)
[2020-11-22] MEDS ORDERED: METHOCARBAMOL (500MG) 500 MG TABLET ONE (17:24)
[2020-11-22] MEDS ORDERED: IBUP-1957 PO (18:07)
== END 2020-11-22 18:24 | disposition home or self-care (01) ==
LOC: ER 16:38
DX: M17.12 Unilateral primary osteoarthritis, left knee (principal); E66.01 Morbid (severe) obesity due to excess calories; Z68.41 Body mass index [BMI] 40.0-44.9, adult; I10 Essential (primary) hypertension; J45.909 Unspecified asthma, uncomplicated; F32.9 Major depressive disorder, single episode, unspecified; Z98.890 Other specified postprocedural states; Z79.899 Other long term (current) drug therapy
CPT/HCPCS: 73501; 73564; 96372; 99284; J1885; 73020

== ENCOUNTER 2021-12-26 16:56 | Emergency (ER) | payer MEDICARE, OTHER ==
[~2021-12-26] VITALS: Ht 157.5 cm; Wt 108.9 kg
[~2021-12-26 16:56] MED LIST changes: +IBUP-1957 PO
[2021-12-26 17:02] VITALS: BP 166/76
[2021-12-26] MEDS ORDERED: CIPR7.5D9 LEFT EAR (17:22)
--- NOTE | 2021-12-26 17:41 | NUR ---
Patient discharged to home in stable condition. Written and verbal after care instructions given. Patient verbalizes understanding of instruction.
== END 2021-12-26 17:42 | disposition home or self-care (01) ==
LOC: ER 17:13
DX: H92.02 Otalgia, left ear (principal); I10 Essential (primary) hypertension; J45.909 Unspecified asthma, uncomplicated; F32.A Depression, unspecified; Z60.2 Problems related to living alone; Z87.442 Personal history of urinary calculi; Z87.19 Personal history of other diseases of the digestive system; Z79.899 Other long term (current) drug therapy

== ENCOUNTER 2022-03-15 20:30 | Emergency (ER) | payer MEDICARE, OTHER ==
[~2022-03-15] VITALS: Ht 160 cm; Wt 108.9 kg
[~2022-03-15 20:30] MED LIST changes: +CIPR7.5D9 LEFT EAR
[2022-03-15 20:47] VITALS: BP 173/79
[2022-03-15 21:17] LABS: BASOPHILS % (AUTO) 0.3 % (0.0-2.0); EOSINOPHILS % (AUTO) 1.5 % (0.0-6.0); HEMATOCRIT 42 % (33-45); HEMOGLOBIN 13.7 g/dL (11.5-14.8); LYMPHOCYTES # (AUTO) 3.5 K/uL (0.8-4.8); LYMPHOCYTES % (AUTO) 44.7 % (20.0-44.0); MEAN CORPUSCULAR HGB CONC 32 g/dl (31.0-36.0); MEAN CORPUSCULAR VOLUME 94 fL (82-100); MONOCYTES # (AUTO) 0.7 K/uL (0.1-1.30); MONOCYTES % (AUTO) 9.5 % (2.0-12.0); NEUTROPHILS # (AUTO) 3.5 K/uL (1.8-8.9); PLATELET COUNT (AUTO) 243 K/uL (150-450); RED BLOOD CELL COUNT(AUTO) 4.52 MIL/uL (4.0-5.2); WHITE BLOOD COUNT (AUTO) 7.9 K/uL (4.3-11.0)
[2022-03-15] MEDS ORDERED: IPRATROPIUM NEB FS 0.5 MG/2.5 ML AMPUL.NEB NEB ONE (22:00)
[2022-03-15] MEDS ORDERED: ALBUTEROL FS 2.5 MG/3 ML VIAL.NEB NEB ONE (22:00)
[2022-03-15] MEDS ORDERED: predniSONE 20 MG TABLET PO ONE (22:00)
[2022-03-15] MEDS ORDERED: predniSONE 20 MG TABLET ONE (22:04)
[2022-03-15 22:05] LABS: CALCIUM, SERUM 8.9 mg/dL (8.5-10.1); CARBON DIOXIDE 26 mmol/L (21-32); CHLORIDE 108 mmol/L (98-107); GLUCOSE 88 mg/dL (74-106); POTASSIUM 3.2 mmol/L (3.5-5.1); SODIUM SERUM 143 mmol/L (136-145); UREA NITROGEN, BLOOD 17 mg/dL (7-18)
[2022-03-15] MEDS ORDERED: IPRATROPIUM NEB FS 0.5 MG/2.5 ML AMPUL.NEB ONE (22:09)
[2022-03-15] MEDS ORDERED: ALBUTEROL FS 2.5 MG/3 ML VIAL.NEB ONE (22:09)
[2022-03-15 22:17] LABS: ALANINE AMINOTRANSFERASE 26 U/L (12-78); ALBUMIN 3.9 g/dL (3.4-5.0); ALKALINE PHOSPHATASE 68 U/L (46-116); ASPARTATE AMINOTRANSFERASE 25 U/L (15-37); BILIRUBIN,DIRECT 0.1 mg/dL (0.0-0.2); BILIRUBIN,TOTAL 0.3 mg/dL (0.2-1.0); TOTAL PROTEIN, SERUM 8.3 g/dL (6.4-8.2)
[2022-03-15] MEDS ORDERED: PRED50TA PO (22:20)
== END 2022-03-15 22:52 | disposition home or self-care (01) ==
LOC: ER 20:35
DX: J44.1 Chronic obstructive pulmonary disease with (acute) exacerbation (principal); I10 Essential (primary) hypertension; J45.909 Unspecified asthma, uncomplicated; F44.2 Dissociative stupor; Z87.442 Personal history of urinary calculi; Z60.2 Problems related to living alone; Z79.899 Other long term (current) drug therapy
CPT/HCPCS: 99285; 71045; 93005; 85025; 80048; 80076; 36415; 84484; 83880; 94640; J7512

== ENCOUNTER 2022-10-04 07:45 | Emergency (ER) | payer BC, OTHER ==
[~2022-10-04] VITALS: Ht 160 cm; Wt 109.8 kg
[~2022-10-04 07:45] MED LIST changes: +PRED50TA PO
[2022-10-04] MEDS ORDERED: ACETAMINOPHEN ES 500 MG TABLET ONE (08:27)
[2022-10-04] MEDS ORDERED: ACETAMINOPHEN ES 500 MG TABLET PO ONE (08:30)
[2022-10-04 09:25] VITALS: BP 149/86
== END 2022-10-04 09:26 | disposition home or self-care (01) ==
LOC: ER 08:05
DX: M25.562 Pain in left knee (principal); M25.561 Pain in right knee; M25.512 Pain in left shoulder; I10 Essential (primary) hypertension; J45.909 Unspecified asthma, uncomplicated; F32.A Depression, unspecified; Z87.442 Personal history of urinary calculi; Z98.890 Other specified postprocedural states; Z79.899 Other long term (current) drug therapy; Z60.2 Problems related to living alone
CPT/HCPCS: 99284; 73564 ×2; 73030; A6403